=== PATIENT | female | born 2000 | race Caucasian/White ===

== ENCOUNTER 2019-11-02 17:18 | Emergency (ER) | payer BC ==
[2019-11-02 17:53] VITALS: BP 127/68
--- NOTE | 2019-11-02 18:03 | UC ---
Ear Complaint HPI - HPI Summary HPI Summary: 18-year-old female with a mild right earache over the past couple days. No recent cold symptoms. She states it feels like fluid is in her ear. She has a history of ear infections as a child but none recently. - History of Current Complaint Chief Complaint: UCGeneralIllness Stated Complaint: EAR PAIN Time Seen by Provider: 11/02/19 17:49 Hx Obtained From: Patient Hx Last Menstrual Period: no period ?: No Onset/Duration: Gradual Onset, Lasting Days Severity Initially: Mild Severity Currently: Mild Pain Intensity: 2 Aggravating Factors: Nothing Alleviating Factors: Nothing - Allergies/Home Medications Allergies/Adverse Reactions: Allergies Allergy/AdvReac Type Severity Reaction Status Date / Time amoxicillin Allergy Swelling Verified 11/02/19 17:47 Home Medications: Home Medications SUMAtriptan TAB* [Imitrex TAB*] 1 tab PO DAILY PRN 11/02/19 [History Confirmed 11/02/19] PMH/Surg Hx/FS Hx/Imm Hx Previously Healthy: Yes - Surgical History Surgical History: Yes Surgery Procedure, Year, and Place: tubes in ears as a child - Family History Known Family History: Positive: Unknown - Social History Lives: With Family Alcohol Use: None Substance Use Type: None Smoking Status (MU): Never Smoked Tobacco Review of Systems All Other Systems Reviewed And Are Negative: Yes ENT: Positive: Ear Ache - Right earache over the past couple days Is Patient Immunocompromised?: No Physical Exam Triage Information Reviewed: Yes Appearance: Well-Appearing, No Pain Distress, Well-Nourished Vital Signs: Initial Vital Signs Temp 98.1 F 11/02/19 17:48 Pulse 91 11/02/19 17:48 Resp 16 11/02/19 17:48 BP 127/68 11/02/19 17:48 Pulse Ox 98 11/02/19 17:48 Vital Signs Reviewed: Yes Eyes: Positive: Conjunctiva Clear ENT: Positive: Pharynx normal, TMs normal - Right TM is pearly garcia with good landmarks and light flex however there is some scarring., Uvula midline Neck: Positive: Supple, Nontender Respiratory: Positive: Lungs clear, Normal breath sounds, No respiratory distress, No accessory muscle use Cardiovascular: Positive: RRR, No Murmur, Pulses Normal, Brisk Capillary Refill Musculoskeletal Exam: Normal Neurological Exam: Normal Psychological Exam: Normal Skin Exam: Normal Ear Complaint Course/Dx - Course Course Of Treatment: The patient is comfortable here. I find no evidence of an ear infection. - Differential Dx/Diagnosis Provider Diagnosis: Otalgia, right ear Discharge ED - Sign-Out/Discharge Documenting (check all that apply): Patient Departure All imaging exams completed and their final reports reviewed: No Studies - Discharge Plan Condition: Good Disposition: HOME Patient Education Materials: Earache (ED) Referrals: Sera Esparza MD [Primary Care Provider] - Additional Instructions: May take Tylenol every 4 hours and alternate with ibuprofen every 8 hours for pain. Follow-up with your primary care provider in 2 or 3 days if continued symptoms or worsening symptoms. May take [id number] decongestant as directed. - Billing Disposition and Condition Condition: GOOD Disposition: Home
== END 2019-11-02 18:30 | disposition home or self-care (01) ==
LOC: UCEAST 17:18
DX: H92.01 Otalgia, right ear (principal); Z88.0 Allergy status to penicillin
CPT/HCPCS: 99211; G0463